=== PATIENT | female | born 1975 | race Caucasian/White ===

== ENCOUNTER → 2018-10-10 | Outpatient (CLI) | payer OTHER ==
--- NOTE | 2018-10-13 09:56 | RAD ---
DATE: 10/10/2018 4:00 PM EXAM: DIGITAL DIAGNOSTIC BILATERAL, BREAST BILATERAL HISTORY: imaging evaluation of a palpable area of concern within the breasts. COMPARISON: Prior mammographic imaging 06/20/2015, 06/29/2015 Bilateral full field craniocaudal and mediolateral oblique images were obtained using digital technique. This study was interpreted with the benefit of Computerized Aided Detection (CAD ). Breast Density: The breast parenchyma is dense, which could reduce the sensitivity of mammography. Breast parenchyma level density D. FINDINGS: The parenchymal pattern appears stable. Benign calcifications are present. Regions of palpable abnormality in the right breast were denoted by skin marker. No definite subjacent mammographic abnormality is identified. No suspicious masses, microcalcifications or architectural distortion is present to suggest malignancy in either breast. The visualized axillae are unremarkable. Therefore ultrasound of the breasts was performed at sites of palpable abnormality. TECHNIQUE: Targeted high resolution sonography of the region of clinical concern was performed. ULTRASOUND FINDINGS: Targeted ultrasound of the patient detected area of concern was performed. Right breast: 8:00 position, 1.5 cm from the nipple: An anechoic avascular mass of circumscribed margins and round/oval shape is present. It demonstrates posterior acoustic enhancement and a parallel orientation. It measures 1.5 cm Left breast: 12:00 position: A near anechoic mass of circumscribed margins and internal homogeneous low level echoes is present with parallel orientation and is of oval /round shape with gently lobulated margins . There is no internal vascularity on Doppler interrogation. It demonstrates posterior acoustic enhancement and measures 0.7 x 0.6 x 0.5 cm 1:00 position: 0.4 x 0.2 x 0.5 cm hypoechoic lesion, gently lobulated and parallel orientation with subtle internal echoes may represent a mildly complicated cyst. IMPRESSION: No mammographic evidence of malignancy. Bilateral cystic lesions are seen, simple cyst on the right and slightly corticated cysts on the left with internal echoes/debris. BI-RADS CATEGORY: 2 BENIGN FINDING(S) RECOMMENDED FOLLOW-UP: 12M 12 MONTH FOLLOW-UP Annual screening mammography is recommended, unless clinically indicated sooner based on symptoms or change in physical exam. PQRS compliance statement: Patient information was entered into a reminder system with a target due date 10/10/2019 for the next mammogram. Mammography is a sensitive method for finding small breast cancers, but it does not detect them all and is not a substitute for careful clinical examination. A negative mammogram does not negate a clinically suspicious finding and should not result in delay in biopsying a clinically suspicious abnormality. "Our facility is accredited by the [employer] Mammography Program." [id number]
== END | disposition home or self-care (01) ==
LOC: MAMMO 13:50
PROVIDERS: ATTEND Family Medicine
DX: N64.89 Other specified disorders of breast (principal)
CPT/HCPCS: 76641; 77066